=== PATIENT | male | born 1985 | race Caucasian/White ===

== ENCOUNTER 2016-11-21 03:50 | Inpatient (IN) | payer MEDICAID ==
[~2016-11-21] VITALS: Ht 188 cm; Wt 81.6 kg
--- NOTE | 2016-11-21 05:00 | NUR ---
[facility] paged.... MD Tegan Hernandez to be paged...
[2016-11-21] MEDS ORDERED: CEFTRIAXONE 1 G VIAL IM ONE (05:30)
[2016-11-21] MEDS ORDERED: SULFAMETH/TRIMETH 800/160 MG TABLET PO ONE (05:30)
[2016-11-21] MEDS ORDERED: HYDROCODONE/APAP 10-325 MG TABLET PO ONE (05:30)
[2016-11-21] MEDS ORDERED: LIDOCAINE HCL 1% 20 ML VIAL ONE (05:42)
[2016-11-21] MEDS ORDERED: CEFTRIAXONE 1 G VIAL ONE (05:43)
[2016-11-21] MEDS ORDERED: HYDROCODONE/APAP 10-325 MG TABLET ONE (05:43)
[2016-11-21] MEDS ORDERED: SULFAMETH/TRIMETH 800/160 MG TABLET ONE (05:43)
[2016-11-21] MEDS ORDERED: VANCOMYCIN IV 1,000 MG in IV DEXTROSE 5% 250 ML IV ONE (05:45)
[2016-11-21] MEDS ORDERED: VANCOMYCIN IV 200 ML ONE (06:03)
[2016-11-21 06:06] LABS: BASOPHILS # (AUTO) 0.3 K/uL (0.0-8.0); BASOPHILS % (AUTO) 2.1 % (0.0-2.0); BILIRUBIN,DIRECT 0.1 mg/dL (0.0-0.2); BILIRUBIN,TOTAL 0.3 mg/dL (0.2-1.0); CALCIUM 8.9 mg/dL (8.5-10.1); CREATININE 1.1 mg/dL (0.6-1.3); EOSINOPHILS # (AUTO) 0.3 K/uL (0.0-0.7); EOSINOPHILS % (AUTO) 1.9 % (0.0-7.0); HEMATOCRIT 36.1 % (36.7-47.1); HEMOGLOBIN 12.6 g/dL (12.5-16.3); LYMPHOCYTES % (AUTO) 14.2 % (20.5-51.5); MEAN CORPUSCULAR HEMOGLOBIN 29.4 uug (23.8-33.4); MEAN CORPUSCULAR HGB CONC 35 g/dL (32.5-36.3); MEAN CORPUSCULAR VOLUME 84.4 fL (73.0-96.2); MONOCYTES # (AUTO) 0.9 K/uL (2.0-10.0); MONOCYTES % (AUTO) 6.6 % (0.0-11.0); NEUTROPHILS # (AUTO) 10.5 K/uL (1.8-8.9); NEUTROPHILS % (AUTO) 75.2 % (38.5-71.5); PLATELET COUNT (AUTO) 446 K/uL (152-348); POTASSIUM 3.5 mmol/L (3.5-5.1); RED BLOOD CELL COUNT(AUTO) 4.28 MIL/uL (4.06-5.63); RED CELL DISTRIBUTION WIDTH 12.1 % (12.1-16.2); TOTAL PROTEIN, SERUM 7.8 g/dL (6.4-8.2)
[2016-11-21] MEDS ORDERED: PIPERACILLIN/TAZOBACTAM/D5W 50 ML IV SCH (06:15)
[2016-11-21] MEDS ORDERED: VANCOMYCIN IV 200 ML IV ONE (06:15)
[2016-11-21] MEDS ORDERED: CLINDAMYCIN PHOSPHATE IV 600 MG in IV DEXTROSE 5% 100 ML IV SCH (06:30)
--- NOTE | 2016-11-21 06:45 | NUR ---
TRANSFERED TO 2ND FLOOR MED SURG VIA [facility]
[2016-11-21 07:20] VITALS: BP 113/70
--- NOTE | 2016-11-21 11:23 | NUR ---
Clinical Pharmacy Note: Vancomycin Dosing per Pharmacy Subjective: Vancomycin IV to start on this 31 yo male patient for cellulitis. Patient received vancomycin 1gm IVPB x1 in ED today at 0600 Objective: BUN 14/Scr 1.1 WBC 14 Temperature 99.2 ht 6' 2'' wt 175 lb Assessment/Plan: Will start vancomycin 1250mg IVPB Q10hr for a predicted vancomycin steady state trough level of 16 mcg/ml. First dose is due today at 1500. Will draw a vancomycin trough level prior to the 4th dose of vancomycin (not ordered yet). Will monitor renal function and adjust vancomycin dose, if needed, should renal function change significantly. Will follow daily.
[2016-11-21 11:40] VITALS: BP 110/70
[2016-11-21 11:41] VITALS: BP 125/72
[2016-11-21] MEDS ORDERED: CEFTRIAXONE 1 G in IV DEXTROSE 5% 50 ML IV SCH (12:00)
--- NOTE | 2016-11-21 12:00 | NUR ---
PT. REFUSING MIDLINE IV INSERTION DUE TO THE FACT THAT HE COULD NOT LEAVE THE NURSING FLOOR TO SMOKE WHEN HE WANTED TO. DR. TATE CEDILLO IN TO EXPLAIN THE IMPORTANCE OF CONTINUED IV ANTIBIOTIC THERAPY. PT. REFUSES AND STATES HE WILL BE CHECKING OUT AMA.
[2016-11-21] MEDS ORDERED: VANCOMYCIN IV 1,250 MG in IV DEXTROSE 5% 500 ML IV SCH (15:00)
--- NOTE | 2016-11-21 15:11 | NUR ---
IMPORTANCE OF ANTIBIOTIC THERAPY AGAIN REVIEWED WITH PT. PT. STATES HE IS GOING LEAVE. IV D/C'D. REDNESS NOTED TO LEFT LEG SLIGHTLY SMALLER IN SIZE FROM MARKINGS DONE IN ER. PT. ALERT UNDERSTANDS FULLY AND STATES THAT HE WILL GO TO A HOSP. THAT WILL ALLOW HIM TO GO OUTSIDE AND SMOKE.
[2016-11-21 15:26] VITALS: BP 127/88
--- NOTE | 2016-11-21 15:45 | NUR ---
HOME INSTRUCTIONS REVIEWED. DISCHARGED TO [facility]IA W/C TO CAR.
== END 2016-11-21 15:45 | disposition left against medical advice (07) | DRG 383 ==
LOC: ER 03:53 → MED 06:33
PROVIDERS: ADMIT Internal Medicine; ATTEND Internal Medicine
PROC: 0J9P3ZZ Drainage of Left Lower Leg Subcutaneous Tissue and Fascia, Percutaneous Approach (ICD-10-PCS; principal; 2016-11-21)
DX: L03.116 Cellulitis of left lower limb (principal); F11.10 Opioid abuse, uncomplicated; D72.829 Elevated white blood cell count, unspecified; F17.210 Nicotine dependence, cigarettes, uncomplicated; L02.416 Cutaneous abscess of left lower limb; Z71.6 Tobacco abuse counseling
CPT/HCPCS: 36415; 73590; 83605; 85025; 87040; 93307; A4217; A4663; J0696; J3370; J3490; J7060

== ENCOUNTER 2020-11-10 17:45 | Emergency (ER) | payer MEDICAID, OTHER ==
[~2020-11-10] VITALS: Ht 188 cm; Wt 81.6 kg
--- NOTE | 2020-11-10 17:45 | NUR ---
Patient is seen crying wiith police hand cuffs. [employer] officers x2 at bedside, AOX4,c/o chronic right thigh pains with localized swelling & redness seen. Patient admits to heroine injection to site. Water to drink provided.
--- NOTE | 2020-11-10 18:21 | NUR ---
Patient is not in police custody@this time.
--- NOTE | 2020-11-10 18:38 | NUR ---
Dr [email or web address], medical screening exam in progress
[2020-11-10] MEDS ORDERED: SULF1TAB48 PO (18:42)
[2020-11-10] MEDS ORDERED: SULFAMETH/TRIMETH 800/160 MG TABLET PO ONE (18:45)
--- NOTE | 2020-11-10 18:51 | NUR ---
Patient was given written and verbal discharge instructions. Patient verbalizes understanding and compliance of instructions. Patient is ambulatory with steady gait. Patient refuses offer of detention placement. Patient was given a list of available shelters in surrounding area. Patient is calm and not crying anymore.
[2020-11-10] MEDS ORDERED: SULFAMETH/TRIMETH 800/160 MG TABLET ONE (18:52)
== END 2020-11-10 18:52 | disposition home or self-care (01) ==
LOC: ER 17:45
DX: L02.415 Cutaneous abscess of right lower limb (principal); L03.115 Cellulitis of right lower limb
CPT/HCPCS: A4663